=== PATIENT | female | born 1975 | race African-American/Black ===

== ENCOUNTER 2024-12-07 22:17 | Emergency (ER) | payer BC ==
[~2024-12-07] VITALS: Ht 167.6 cm; Wt 121.2 kg
[2024-12-07 22:24] VITALS: O2SAT 98
[2024-12-07 22:37] VITALS: RESP 18
[2024-12-07 23:06] LABS: BASOPHILS % 0.7 % (0.0-2.0); EOSINOPHILS % 0.9 % (0.0-5.0); HEMATOCRIT. 38.5 % (36.0-48.0); HEMOGLOBIN. 12.8 g/dL (12.0-16.0); LYMPHOCYTES % 23.7 % (20.0-50.0); MEAN PLATELET VOLUME 9.5 fl (7.4-10.4); MONOCYTES % 13.0 % (2.0-8.0); NEUTROPHILS % 61.7 % (40.0-76.0); PLATELET 218 x1000/uL (130-400); RED BLOOD CELL COUNT 4.18 mill/uL (4.2-5.4); RED CELL DISTRIBUTION WIDTH 15.3 % (11.6-14.6)
[2024-12-07 23:22] LABS: CREATININE 1.0 mg/dL (0.6-1.0); TROPONIN I HIGH SENSITIVITY < 4 ng/L (3.0-34); UREA NITROGEN BLOOD 11 mg/dL (9-23)
[2024-12-07] MEDS ORDERED: AMOX1TAB16 MT (23:27)
[2024-12-07] MEDS ORDERED: AZIT500T8 MT (23:27)
[2024-12-07 23:50] VITALS: BP 151/68; PULSE 64; TEMP 36.7; O2SAT 99
== END 2024-12-08 00:02 | disposition home or self-care (01) ==
LOC: ER 22:17
DX: J18.9 Pneumonia, unspecified organism (principal); E11.9 Type 2 diabetes mellitus without complications
CPT/HCPCS: 36415; 71045; 80048; 83735; 84484; 85025; 93005; 99285